=== PATIENT | female | born 1980 | race Native Hawaiian/Other Pacific Islander ===

== ENCOUNTER 2021-05-15 21:40 | Emergency (ER) | payer OTHER ==
[~2021-05-15] VITALS: Ht 162.6 cm; Wt 81.6 kg
[2021-05-15 23:05] VITALS: BP 136/89; TEMP 98.4
== END 2021-05-15 23:05 | disposition home or self-care (01) ==
LOC: ED 21:40
DX: J06.9 Acute upper respiratory infection, unspecified (principal); F17.210 Nicotine dependence, cigarettes, uncomplicated; Z20.822 Contact with and (suspected) exposure to COVID-19
CPT/HCPCS: 87502; 87635; 87651; 99283; U0003

== ENCOUNTER 2021-07-13 19:44 | Emergency (ER) | payer OTHER ==
[~2021-07-13] VITALS: Ht 162.6 cm; Wt 83.0 kg
[2021-07-13 20:16] VITALS: BP 161/100; TEMP 98.3
== END 2021-07-13 20:16 | disposition home or self-care (01) ==
LOC: ED 19:44
DX: M54.16 Radiculopathy, lumbar region (principal); M54.41 Lumbago with sciatica, right side
CPT/HCPCS: 96372; 99283; J1885; J2930

== ENCOUNTER 2022-01-10 15:47 | Emergency (ER) | payer OTHER ==
[~2022-01-10] VITALS: Ht 157.5 cm; Wt 81.6 kg
[2022-01-10 15:52] VITALS: TEMP 97.3
[2022-01-10 16:49] VITALS: BP 141/88
== END 2022-01-10 16:50 | disposition home or self-care (01) ==
LOC: ED 15:47
DX: M54.59 Other low back pain (principal); G89.29 Other chronic pain; M79.604 Pain in right leg
CPT/HCPCS: 96372; 99283; J1885; J2360

== ENCOUNTER 2022-05-25 07:45 | Emergency (ER) | payer OTHER ==
[~2022-05-25] VITALS: Ht 157.5 cm; Wt 74.4 kg
[2022-05-25 09:19] VITALS: BP 149/95; TEMP 98.8
== END 2022-05-25 09:19 | disposition home or self-care (01) ==
LOC: ED 07:45
DX: J02.9 Acute pharyngitis, unspecified (principal); J40 Bronchitis, not specified as acute or chronic; F17.210 Nicotine dependence, cigarettes, uncomplicated; Z20.822 Contact with and (suspected) exposure to COVID-19
CPT/HCPCS: 87502; 87635; 87651; 99283; U0001

== ENCOUNTER 2022-07-18 16:01 | Emergency (ER) | payer OTHER ==
[~2022-07-18] VITALS: Ht 157.5 cm; Wt 72.1 kg
[2022-07-18 17:00] VITALS: BP 145/85; TEMP 98.3
== END 2022-07-18 17:00 | disposition home or self-care (01) ==
LOC: ED 16:01
DX: G44.209 Tension-type headache, unspecified, not intractable (principal)
CPT/HCPCS: 96372; 99283; J1885

== ENCOUNTER 2022-09-02 15:49 | Outpatient (CLI) | payer OTHER | END 2022-09-02 22:15 | disposition home or self-care (01) | LOC: RAD 15:49 | PROVIDERS: ATTEND Physician Assistant | DX: M54.17 Radiculopathy, lumbosacral region (principal) ==

== ENCOUNTER 2022-09-12 23:56 | Emergency (ER) | payer OTHER ==
[~2022-09-12] VITALS: Ht 167.6 cm; Wt 68.0 kg
[2022-09-13 01:15] VITALS: BP 142/88; TEMP 99.3
== END 2022-09-13 01:15 | disposition home or self-care (01) ==
LOC: ED 23:56
DX: M46.1 Sacroiliitis, not elsewhere classified (principal); F41.9 Anxiety disorder, unspecified; F17.210 Nicotine dependence, cigarettes, uncomplicated
CPT/HCPCS: 96372; 99283; J1885; J2930

== ENCOUNTER 2022-10-03 12:12 | Emergency (ER) | payer OTHER ==
[~2022-10-03] VITALS: Ht 157.5 cm; Wt 71.2 kg
[2022-10-03 12:15] VITALS: BP 152/88; TEMP 98
[2022-10-03 13:29] LABS: PLATELET COUNT 181 K/uL (152-353)
[2022-10-03 13:35] LABS: POTASSIUM 3.7 mmol/L (3.6-5.2)
== END 2022-10-03 14:03 | disposition home or self-care (01) ==
LOC: ED 12:12
PROVIDERS: Family Medicine
DX: R51.9 Headache, unspecified (principal); R03.0 Elevated blood-pressure reading, without diagnosis of hypertension
CPT/HCPCS: 36415; 80053; 81025; 85027; 96372; 99283; J1885

== ENCOUNTER 2022-11-06 10:02 | Outpatient (CLI) | payer OTHER | END 2022-11-06 20:25 | disposition home or self-care (01) | LOC: MAMMO 10:02 | PROVIDERS: ATTEND Internal Medicine | DX: Z12.31 Encounter for screening mammogram for malignant neoplasm of breast (principal) ==

== ENCOUNTER 2022-11-27 14:51 | Outpatient (CLI) | payer OTHER | END 2022-11-27 19:11 | disposition home or self-care (01) | LOC: MRI 14:51 | PROVIDERS: ATTEND Physician Assistant | DX: M54.17 Radiculopathy, lumbosacral region (principal) ==